=== PATIENT | male | born 1990 | race Caucasian/White ===

== ENCOUNTER 2021-10-15 23:34 | Emergency (ER) | payer SELFPAY ==
[~2021-10-15] VITALS: Ht 182.9 cm; Wt 82.7 kg
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
[2021-10-15 23:44] VITALS: BP 143/83
[2021-10-16] MEDS ORDERED: DIPHTH,PERTUSS(ACELL),TET TOX 0.5 ML DISP.SYRIN. VAX IM ONE
[2021-10-16] MEDS ORDERED: BACITRACIN ZINC TOPICAL OINT PACKET. TP ONE
[2021-10-16] MEDS ORDERED: MORPHINE SULFATE 10 MG/ML SYRINGE. SQ ONE
[2021-10-16] MEDS ORDERED: KETOROLAC 60 MG/2 ML VIAL. IM ONE
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
== END 2021-10-16 00:45 | disposition home or self-care (01) ==
LOC: ER 23:34
DX: S50.11XA Contusion of right forearm, initial encounter (principal); W22.8XXA Striking against or struck by other objects, initial encounter; Y93.89 Activity, other specified; Y92.89 Other specified places as the place of occurrence of the external cause; Y99.8 Other external cause status
CPT/HCPCS: 29240; 73080; 73090; 90471; 90715; 96372; 99284; J1885; J2270